=== PATIENT | male | born 1950 | race Caucasian/White ===

== ENCOUNTER 2018-05-25 18:57 | Emergency (ER) | payer MEDICARE ==
[~2018-05-25] VITALS: Ht 175.3 cm; Wt 90.7 kg
[~2018-05-25 18:57] MED LIST: Z.0.AMARYL2 MG; Z.0.LIPITOR40 MG; Z.0.WELCHOL625 MG; Z.0.ZEGERID 20 MG1 E; [UNRECOGNIZED DRUG - OTHER]
== END 2018-05-25 20:28 | disposition home or self-care (01) ==
LOC: ER 18:57
DX: B02.9 Zoster without complications (principal)
CPT/HCPCS: 99282

== ENCOUNTER → 2024-10-18 | Outpatient (REF) | payer MEDICARE | LOC: RAD 11:10 | PROVIDERS: ATTEND Internal Medicine Critical Care Medicine | DX: R06.00 Dyspnea, unspecified (principal) | CPT/HCPCS: 71046 ==